=== PATIENT | female | born 1985 | race Caucasian/White ===

== ENCOUNTER 2021-06-06 12:48 | Emergency (ER) | payer SELFPAY ==
[2021-06-06] MEDS ORDERED: Acetaminophen 500 MG TAB ONE (13:32)
[2021-06-06] MEDS ORDERED: Ibuprofen 800 MG TAB ONE (13:32)
[2021-06-06] MEDS ORDERED: Amoxicillin/Potassium Clav 875 MG TAB ONE (13:32)
== END 2021-06-06 13:37 | disposition home or self-care (01) ==
LOC: MADERS 12:48
DX: K04.7 Periapical abscess without sinus (principal); O92.6 Galactorrhea; K02.9 Dental caries, unspecified; F17.210 Nicotine dependence, cigarettes, uncomplicated
CPT/HCPCS: 99283